=== PATIENT | male | born 1985 | race Caucasian/White ===

== ENCOUNTER 2016-08-29 13:39 | Emergency (ER) | payer OTHER, SELFPAY ==
[2016-08-29 13:47] VITALS: TEMP 98.1; O2SAT 100
[2016-08-29] MEDS ORDERED: Naproxen 500 MG TAB PO ONE (13:56)
[2016-08-29] MEDS ORDERED: Naproxen 500 MG TAB PO STA (13:57)
[2016-08-29 14:00] VITALS: RESP 16
--- NOTE | 2016-08-29 14:00 | ED PDOC ---
HPI: SOB/CHF/COPD Time Seen by Provider: 08/29/16 13:58 Chief Complaint (Nursing): Shortness Of Breath Chief Complaint (Provider): chest pain History Per: Patient (30 y/o male here with complaint chest pain noted upon awakening x 2 days. States pain worse with deep breathing and walking. Notes worsening at times with reaching forward. States pain begins in back and radiates to chest wall. (+) h/o smoking. Denies any recent h/o travel. Tried use of bengay cream without relief.) Past Medical History Reviewed: Historical Data, Nursing Documentation, Vital Signs Vital Signs: Last Vital Signs Temp 98.1 F 08/29/16 13:42 Pulse 91 H 08/29/16 13:42 Resp 16 08/29/16 13:54 BP 144/95 H 08/29/16 13:42 Pulse Ox 100 08/29/16 14:02 - Family History Family History: States: No Known Family Hx - Allergies Allergies/Adverse Reactions: Allergies Allergy/AdvReac Type Severity Reaction Status Date / Time No Known Allergies Allergy Verified 08/29/16 13:46 Review of Systems ROS Statement: Except As Marked, All Systems Reviewed And Found Negative Cardiovascular: Positive for: Chest Pain Musculoskeletal: Positive for: Back Pain Physical Exam - Reviewed Nursing Documentation Reviewed: Yes Vital Signs Reviewed: Yes - Physical Exam Appears: Positive for: Well, Non-toxic, No Acute Distress Head Exam: Positive for: ATRAUMATIC, NORMAL INSPECTION, NORMOCEPHALIC Skin: Positive for: Normal Color, Warm, DRY Eye Exam: Positive for: EOMI, Normal appearance, PERRL ENT: Positive for: Normal ENT Inspection Neck: Positive for: Normal, Painless ROM Cardiovascular/Chest: Positive for: Regular Rate, Rhythm, Other (Breath sounds CTAB) Respiratory: Positive for: CNT, Normal Breath Sounds Gastrointestinal/Abdominal: Positive for: Normal Exam, Bowel Sounds, Soft Back: Positive for: Normal Inspection, Other (Unclear region of tenderness by left subscapular region. ) Extremity: Positive for: Normal ROM Neurologic/Psych: Positive for: Alert, Oriented - Laboratory Results Result Diagrams: 08/29/16 14:09 - ECG ECG: Positive for: Viewed By Ar ECG Rhythm: Positive for: Sinus Rhythm (nsr 86bpm; no ectopy; no acute changes done at 13:45) O2 Sat by Pulse Oximetry: 100 - Radiology X-Ray: Viewed By Me ( no acute disease; no pneumothorax) - Progress ED Course And Treament: Naproxen 500 mg x 1 dose d-dimer wnl Disposition - Clinical Impression Clinical Impression: Back pain - Patient ED Disposition Is Patient to be Admitted: No - Disposition Referrals: [facility] [Outside] Disposition: Routine/Home Disposition Time: 15:34 Condition: FAIR Instructions: Muscle Strain (ED)
[2016-08-29 14:39] LABS: BASO % 0.5 % (0.0-2.0); EOS # 0.2 K/uL (0.0-0.7); EOS % 3.3 % (0.0-4.0); HEMATOCRIT 45.9 % (35.0-51.0); LYMPH % 29.6 % (20.0-40.0); MEAN CORPUSCULAR HEMOGLOBIN 29.4 pg (27.0-31.0); MEAN CORPUSCULAR HGB CONC 33.4 g/dL (33.0-37.0); MEAN PLATELET VOLUME 9.8 fl (7.2-11.7); MONO # 0.5 K/uL (0.0-0.8); MONO % 8.1 % (0.0-10.0); NEUT % 58.5 % (50.0-75.0); NRBC % 0.1 % (0.0-0.0); RED CELL DISTRIBUTION WIDTH 13.5 % (11.5-14.5); WHITE BLOOD COUNT 6.8 K/uL (4.8-10.8)
[2016-08-29 15:51] VITALS: BP 128/77; PULSE 88
--- NOTE | 2016-08-29 16:20 | RAD ---
HISTORY: chest pain COMPARISON: No prior. TECHNIQUE: Chest PA and lateral FINDINGS: LUNGS: No active pulmonary disease. PLEURA: No significant pleural effusion identified. No pneumothorax apparent. CARDIOVASCULAR: Normal. OSSEOUS STRUCTURES: No significant abnormalities. VISUALIZED UPPER ABDOMEN: Normal. OTHER FINDINGS: None. IMPRESSION: No active disease.
== END 2016-08-29 15:52 | disposition home or self-care (01) ==
LOC: H.ER 13:39
DX: M54.9 Dorsalgia, unspecified (principal); R07.9 Chest pain, unspecified

== ENCOUNTER 2017-04-28 16:01 | Emergency (ER) | payer SELFPAY ==
[2017-04-28 16:18] VITALS: BP 146/94; PULSE 86; RESP 19; TEMP 98.6; O2SAT 99
--- NOTE | 2017-04-28 16:44 | ED PDOC ---
HPI: CCC, URI, Sore Throat Time Seen by Provider: 04/28/17 16:05 Chief Complaint (Nursing): ENT Problem Past Medical History Vital Signs: Last Vital Signs Temp 98.6 F 04/28/17 16:15 Pulse 86 04/28/17 16:15 Resp 19 04/28/17 16:15 BP 146/94 H 04/28/17 16:15 Pulse Ox 99 04/28/17 16:15 - Home Medications Home Medications: Ambulatory Orders Medication Instructions Recorded Naproxen [Naprosyn] 1 tab PO Q12 PRN #14 tablet 08/29/16 Amoxicillin 875 mg PO BID #20 tab 04/28/17 - Allergies Allergies/Adverse Reactions: Allergies Allergy/AdvReac Type Severity Reaction Status Date / Time No Known Allergies Allergy Verified 04/28/17 16:15 - ECG O2 Sat by Pulse Oximetry: 99 Disposition - Clinical Impression Clinical Impression: Otitis media - Patient ED Disposition Is Patient to be Admitted: No Counseled Patient/Family Regarding: Diagnosis, Need For Followup, Rx Given - Disposition Disposition: Routine/Home Disposition Time: 16:44 Condition: GOOD Prescriptions: Amoxicillin 875 mg PO BID #20 tab Instructions: Otitis Media (ED)
--- NOTE | 2017-04-28 16:50 | ED PDOC ---
HPI: CCC, URI, Sore Throat Time Seen by Provider: 04/28/17 16:05 Chief Complaint (Nursing): ENT Problem Chief Complaint (Provider): Earache History Per: Patient History/Exam Limitations: no limitations Onset/Duration Of Symptoms: Days Ear Symptoms: Bilateral: Ear Pain Severity: Severe Pain Scale Rating Of: 10 (Pt states he thinks he is going to from his intense ear pain.) Additional Complaint(s): Patient is a 31 y/o male with no significant past medical history presenting to the emergency department for bilateral earache since last night. Pt reports taking Tylenol before bed for the pain without any significant relief. Reports feeling feverish last night but no temperature taken. PCP: none provided. Past Medical History Reviewed: Historical Data, Nursing Documentation, Vital Signs Vital Signs: Last Vital Signs Temp 98.6 F 04/28/17 16:15 Pulse 86 04/28/17 16:15 Resp 19 04/28/17 16:15 BP 146/94 H 04/28/17 16:15 Pulse Ox 99 04/28/17 16:53 - Medical History PMH: No Chronic Diseases - Family History Family History: States: Unknown Family Hx - Home Medications Home Medications: Ambulatory Orders Medication Instructions Recorded Naproxen [Naprosyn] 1 tab PO Q12 PRN #14 tablet 08/29/16 Amoxicillin 875 mg PO BID #20 tab 04/28/17 - Allergies Allergies/Adverse Reactions: Allergies Allergy/AdvReac Type Severity Reaction Status Date / Time No Known Allergies Allergy Verified 04/28/17 16:15 Review of Systems ROS Statement: Except As Marked, All Systems Reviewed And Found Negative ENT: Positive for: Ear Pain (bilateral) Skin: Negative for: Rash Neurological: Negative for: Weakness Physical Exam - Reviewed Nursing Documentation Reviewed: Yes Vital Signs Reviewed: Yes - Physical Exam Appears: Positive for: Well, Non-toxic, No Acute Distress Head Exam: Positive for: ATRAUMATIC, NORMAL INSPECTION, NORMOCEPHALIC Skin: Positive for: Normal Color, Warm, Dry Eye Exam: Positive for: Normal appearance ENT: Positive for: TM Is/Are (erythematous without perforations) Neck: Positive for: Normal Cardiovascular/Chest: Positive for: Regular Rate, Rhythm. Negative for: Murmur Respiratory: Positive for: Normal Breath Sounds. Negative for: Accessory Muscle Use, Respiratory Distress Extremity: Positive for: Normal ROM. Negative for: Pedal Edema Neurologic/Psych: Positive for: Alert, Oriented (x3) - ECG O2 Sat by Pulse Oximetry: 99 (RA) Pulse Ox Interpretation: Normal Medical Decision Making Medical Decision Making: Time: 16:39 Initial impression: Bilateral earache Initial plan: Acetaminophen 650 mg PO Ibuprofen 600 mg PO ~ Scribe Attestation: Documented by Angela Romano, acting as a scribe for YULIANA Lemon. Provider Scribe Attestation: All medical record entries made by the Scribe were at my direction and personally dictated by me. I have reviewed the chart and agree that the record accurately reflects my personal performance of the history, physical exam, medical decision making, and the department course for this patient. I have also personally directed, reviewed, and agree with the discharge instructions and disposition. Disposition - Clinical Impression Clinical Impression: Otitis media - Patient ED Disposition Is Patient to be Admitted: No Counseled Patient/Family Regarding: Diagnosis, Need For Followup, Rx Given - Disposition Disposition: Routine/Home Disposition Time: 16:44 Condition: GOOD Prescriptions: Amoxicillin 875 mg PO BID #20 tab Instructions: Otitis Media (ED) Forms: [email or web address] ([place]), [facility] ED School/Work Excuse
== END 2017-04-28 17:35 | disposition home or self-care (01) ==
LOC: H.ER 16:01
DX: H66.90 Otitis media, unspecified, unspecified ear (principal)